=== PATIENT | female | born 1960 | race Caucasian/White ===

== ENCOUNTER 2025-04-17 18:04 | Emergency (ER) | payer OTHER, SELFPAY ==
[2025-04-17] VITALS (22 sets, daily range): BP systolic 160–190; BP diastolic 96–112; PULSE 69–98; TEMP 36.8; O2SAT 91–99; BMI 25.6
--- NOTE | 2025-04-17 18:27 | XR_ITS ---
The [address] [address] Patient Name: WU ERICKSON MRN: [id number] date: 1960 Sex: F Assigned Patient Location: ER Current Patient Location: ED.MAIN Accession/Order Number: [id number] Exam Date: 04/17/2025 18:45 Report Date: 04/17/2025 19:20 At the request of: MERLENE FORD MD Procedure: XR chest 1V Single frontal view chest CLINICAL HISTORY: Hypertension COMPARISON: 06/21/2022 Unremarkable cardiomediastinal. Lungs clear. No effusion or pneumothorax. XR/XR chest 1V IMPRESSION: Negative acute pleural-parenchymal disease. Impression dictated by: Star Harper M.D. 04/17/2025 7:20 PM Dictation Location: [place] [address] Electronically authenticated by: [id number] Y Date: 04/17/2025 19:20
--- NOTE | 2025-04-17 18:27 | ECG_ITS ---
The [facility] Test Date: 2025-04-17 Pat Name: Jessenia Allen Department: Room: - Gender: Female Roofing Layer: : 1960 Requested By: [id number] Order Number: [id number] Reading MD: MARCY WILKERSON M.D. Measurements Intervals [place] Rate: 90 P: 26 [place]: 140 QRS: 0 QRSD: 78 T: 36 QT: 380 QTc: 428 Interpretive Statements 1100 Sinus rhythm 9110 normal ECG Compared to ECG 06/21/2022 18:42:53 No significant changes Electronically Signed On 04-18-2025 10:51:08 EDT by MARCY WILKERSON M.D.
--- NOTE | 2025-04-17 18:29 | ED.GENADUL1 ---
HPI HPI - General Adult General Chief complaint: Recheck/Abnormal Lab/Rx Stated complaint: HIGH BLOOD PRESSURE/ HEART RACING/ NAUSEATED Time Seen by Provider: 04/17/25 18:19 Source: patient Mode of arrival: walk-in Limitations: no limitations History of Present Illness HPI narrative: 64-year-old female presented to the emergency department for elevated blood pressure. Yesterday she had a fullness in her chest and her neck was hurting. Her daughter checked her blood pressure today and it was high so she came in. She does not have that fullness now but she feels off. The last time she had her blood pressure checked was a few months ago at her doctor's office and it was normal. Sometimes she feels like she needs to take in a deep breath. Related Data Home Medications ?Medication ?Instructions ?Recorded ?Confirmed cholecalciferol (vitamin D3) 50 04/17/25 mcg (2,000 unit) capsule Allergies Allergy/AdvReac Type Severity Reaction Status Date / Time sulfamethoxazole (From Allergy Vomiting Verified 04/17/25 18:15 Bactrim) trimethoprim (From Bactrim) Allergy Vomiting Verified 04/17/25 18:15 Review of Systems ROS Narrative A ten point review of systems is negative except as noted above. PFSH PFSH Social History Little interest or pleasure in doing things: not at all Feeling down, depressed, or hopeless: not at all Exam Narrative Exam Narrative: Nurses note and vital signs reviewed and patient is not hypoxic. General:The patient appears well and in no apparent distress.Patient is resting comfortably on cart. Skin:Warm, dry, no pallor noted.There is no rash noted. Head:Normocephalic, atraumatic Eye: Normal conjunctiva, no drainage Ears, Nose, Mouth, and Throat: oral mucosa is moist. Nares patent. Cardiovascular:Regular Rate and Rhythm Respiratory:Patient is in no distress, no accessory muscle use, lungs are clear to auscultation, no wheezing, rales or rhonchi Back:non-tender GI: Soft and nontender Musculoskeletal: The patient has no evidence of calf tenderness, no pitting edema, symmetrical pulses noted bilaterally Neurological:A&O, normal speech Psychiatric:Cooperative Constitutional Vital Signs, click to edit/add: Last Vital Signs Temp 98.2 F 04/17/25 18:09 Pulse 96 H 04/17/25 18:09 Resp 16 04/17/25 18:09 BP 190/112 H 04/17/25 18:09 Pulse Ox 99 04/17/25 18:09 O2 Del Method Room Air 04/17/25 18:09 Course Vital Signs Vital signs: Vital Signs Temperature 98.2 F 04/17/25 18:09 Pulse Rate 96 H 04/17/25 18:09 Respiratory Rate 16 04/17/25 18:09 Blood Pressure 190/112 H 04/17/25 18:09 Pulse Oximetry 99 04/17/25 18:09 Oxygen Delivery Method Room Air 04/17/25 18:09 Temperature 98.2 F 04/17/25 18:09 Pulse Rate 96 H 04/17/25 18:09 Respiratory Rate 16 04/17/25 18:09 Blood Pressure 190/112 H 04/17/25 18:09 Pulse Oximetry 99 04/17/25 18:09 Oxygen Delivery Method Room Air 04/17/25 18:09 Medical Decision Making MDM Narrative Medical decision making narrative: Tests ordered and the patient is signed out to Dr. Kenny at change of shift Differential Diagnosis Differential Diagnosis: Hypertension, acute kidney injury, myocardial infarction, PE Lab Data Lab results reviewed: Yes I reviewed the patient's lab results Labs: Lab Results 04/17/25 Range/Units 18:32 WBC 8.1 (4.0-11.0) 10^3/uL RBC 5.02 (4.20-5.40) 10^6/uL Hgb 15.9 (12.0-16.0) g/dL Hct 46.5 (36.0-48.0) % MCV 92.6 (81.0-99.0) fL MCH 31.7 (26.7-34.0) pg MCHC 34.2 (29.9-35.2) g/dL RDW 11.9 (11.0-15.0) % Plt Count 299 (150-450) 10^3/uL MPV 11.0 (9.5-13.5) fL Neut % (Auto) 61.7 (43.0-75.0) % Lymph % (Auto) 28.8 (20.5-60.0) % [place] % (Auto) 6.8 (1.7-12.0) % Eos % (Auto) 1.6 (0.9-7.0) % Baso % (Auto) 0.7 (0.2-2.0) % Neut # (Auto) 5.0 (1.4-6.5) 10^3/uL Lymph # (Auto) 2.3 (1.2-3.8) 10^3/uL [place] # (Auto) 0.6 (0.3-0.8) 10^3/uL Eos # (Auto) 0.1 (0.0-0.7) 10^3/uL Baso # (Auto) 0.1 (0.0-0.1) 10^3/uL Abs Immat Gran (auto) 0.03 (0.00-0.03) 10^3/uL Imm/Tot Granulo (auto) 0.4 (0.0-0.5) % ECG Data Attestation: I personally reviewed and interpreted this ECG as follows: (EKG on my interpretation shows sinus rhythm with rate of 90 and no acute change) Discharge Plan Discharge Patient Disposition: Still a Patient
[2025-04-17 18:46] LABS: Hematocrit 46.5 % (36.0-48.0); Hemoglobin 15.9 g/dL (12.0-16.0); Immature Granulocytes Abs Auto 0.03 10^3/uL (0.00-0.03); Immature Granulocytes Pct Auto 0.4 % (0.0-0.5); Lymphocytes Absolute Auto 2.3 10^3/uL (1.2-3.8); Mean Corpuscular HGB Conc 34.2 g/dL (29.9-35.2); Mean Corpuscular Hemoglobin 31.7 pg (26.7-34.0); Mean Corpuscular Volume 92.6 fL (81.0-99.0); Platelet Count 299 10^3/uL (150-450); Red Blood Count 5.02 10^6/uL (4.20-5.40); White Blood Count 8.1 10^3/uL (4.0-11.0)
[2025-04-17 19:06] LABS: Anion Gap 12.2; Blood Urea Nitrogen 13.0 mg/dL (7.0-18.0); Calcium 9.7 mg/dL (8.5-10.1); Carbon Dioxide 26.0 mmol/L (21.0-32.0); Chloride 102 mmol/L (98-107); Estimated GFR (African America >60 (>=60 mL/min/1.73m^2); Estimated GFR (Non-African Ame >60 (>=60 mL/min/1.73m^2); Glucose 105 mg/dL (74-106); Potassium 3.2 mmol/L (3.5-5.1); Sodium 137 mmol/L (136-145)
--- OUTSIDE RECORDS SUMMARY | 2025-04-17 19:19 | XMS_ITS | Clinical Summary ---
Author Organization [facility] Address [address], [address] [place] [address] Care Team Providers Care Tech Intern Name Role Phone Unavailable Primary Care Provider Unavailabl e Allergies Active Allergy Reactions Criticality Noted Date Comments Sulfamethoxazole-Tri methoprim Other (See Comments) 05/22/2019 Dizziness, stomach upset, nausea Medications Multiple Vitamins-Mineral s (THERAPEUTIC MULTIVITAMIN-MIN ERALS) tablet Take 1 tablet by mouth daily Active Loma-3 1400 MG CAPS Take by mouth Active vitamin C (ASCORBIC ACID) 500 MG tablet Take 500 mg by mouth daily Active Wild Yam 100 MG CAPS Take by mouth Active Cranberry 400 MG TABS Take by mouth Active Cyanocobalamin (VITAMIN B-12) 3000 MCG/ML LIQD Place under the tongue Active Active Problems Problem Noted Date Diagnosed Date Frequent urinary tract infections 05/24/2019 Suprapubic pain 05/24/2019 Renal colic 05/24/2019 Family History Medical History Relation Name Comments Atrial Fibrillation Mother High Blood Pressure Mother Relation Name Status Comments Father Mother Social History Tobacco Use Types Packs/Day Years Used Date Smoking Tobacco: Never Smokeless Tobacco: Never Alcohol Use Standard Drinks/Week Comments Yes 0 (1 standard drink = 0.6 oz pur e alcohol) 2 beer per day Comments No Sex and Gender Information Value Date Recorded Sex Assigned at Not on file Legal Sex Female 9:27 PM EST Gender Identity Not on file Sexual Orientation Not on file Last Filed Vital Signs Vital Sign Reading Time Taken Comments Blood Pressure 140/80 05/22/2019 1:47 PM EDT Pulse - - Temperature 36.9 C (98.5 F) 05/22/2019 1:32 PM EDT Respiratory Rate - - Oxygen Saturation - - Inhaled Oxygen Concentration - - Weight 68.9 kg (152 lb) 05/22/2019 1:32 PM EDT Height 157.5 cm (5' 2 ) 05/22/2019 1:32 PM EDT Body Mass Index 27.8 05/22/2019 1:32 PM EDT Plan of Treatment Not on file Insurance [employer]
--- OUTSIDE RECORDS SUMMARY | 2025-04-17 19:19 | XMS_ITS | Encounter Summary ---
Author Organization [employer] Address [facility] [address] [place] [address] Care Team Providers Care Maintenance Shop Clerk Name Role Phone Sang Green Cristine GRANADON-PINION POLISHER Primary Care Provider + Encounter Details Date Type Department Care Team (Late st Contact Info) Description 05/15/2024 Telephone [facility] - Family Medicine [address] [place] [phone] Abdulkadir Zheng CMA Social History Tobacco Use Types Packs/Day Years Used Date Smoking Tobacco: Never Smokeless Tobacco: Never Alcohol Use Standard Drinks/Week Comments Yes 25 (1 standard drink = 0.6 oz pu re alcohol) 10-12 drinks per week PHQ-2 Answer Date Recorded Total Score 0 05/25/2023 Childcare Answer Date Recorded Childcare Unknown 01/03/2019 Employment Answer Date Recorded Employment Unknown 01/03/2019 Hunger Screening Answer Date Recorded Within the past 12 months we worried whether our food would run out before we got money to buy more. Never True 11/30/2023 Within the past 12 months th e food we bought just didn't last and we didn't have money to get more. Never True 11/30/2023 Comments No Sex and Gender Information Value Date Recorded Sex Assigned at Not on file Legal Sex Female 11:37 AM EDT Gender Identity Not on file Sexual Orientation Not on file documented as of this encounter Miscellaneous Notes * Telephone Encounter - Abdulkadir Zheng CMA - 05/15/2024 10:30 AM EDT Pt called states she is pretty sure she has Shingles. She states you are well aware of her insurance.Could you please send in a Antiviral to her local pharmacy. * Telephone Encounter - KUSHAL Colunga - 05/15/2024 10:30 AM EDT Unfortunately, shingles is something we need to see and cannot send antivirals in without being seen. * Telephone Encounter - Abdulkadir Zheng CMA - 05/15/2024 10:30 AM EDT I called pt and left message on Personal Voice mail documented in this encounter Plan of Treatment Upcoming Encounters Date Type Department Care Team (Late st Contact Info) Description 05/27/2025 9:00 AM EST Office Visit [facility] [address] [place] [address] Sang Green APRN-CNP [address], [place] [id number] documented as of this encounter Visit Diagnoses Not on filedocumented in this encounter Additional Health Concerns Assessment Noted Time PHQ-9 Depression Total Score: 0 05/25/20 23 2:42 PM EDT A Body Mass Index follow-up plan has been documented for the patient 08/09/2023 2:25 PM EST documented as of this encounter Care Teams Maintenance Shop Clerk Relationship Specialty Start Date End Date Sang Green APRN-CNP [address] [place] [address] PCP - General Internal Medicine 02/07/25 documented as of this encounter
--- OUTSIDE RECORDS SUMMARY | 2025-04-17 19:19 | XMS_ITS | Encounter Summary ---
Author Organization [employer] Address [facility] [id number] [address] [place] [address] Care Team Providers Care Physical Optics Teacher Name Role Phone Sang Green BARREL RIFLER BUTTON-HEAD WAITER Primary Care Provider + Encounter Details Date Type Department Care Team (Late Contact Info) Description 08/13/2022 Orders Only [facility] - [facility] [address] [place] [phone] Melody Arnold CMA Encounter for screening for osteoporosis; Asymptomatic menopause; Chronic sacroiliac joint pain Social History Tobacco Use Types Packs/Day Years Used Date Smoking Tobacco: Never Smokeless Tobacco: Never Alcohol Use Standard Drinks/Week Comments Yes 25 (1 standard drink = 0.6 oz pu re alcohol) PHQ-2 Answer Date Recorded Total Score 0 07/29/2022 Childcare Answer Date Recorded Childcare Unknown 01/03/2019 Employment Answer Date Recorded Employment Unknown 01/03/2019 Comments Unknown Sex and Gender Information Value Date Recorded Sex Assigned at Not on file Legal Sex Female 11:37 AM EDT Gender Identity Not on file Sexual Orientation Not on file COVID-19 Exposure Response Date Recorded In the last month, have you been in contact with someone who was confirmed or suspected to have Coronavirus / COVID-19? No / Unsure 07/29/2022 8:52 AM EST documented as of this encounter Plan of Treatment Upcoming Encounters Date Type Department Care Team (Late Contact Info) Description 05/27/2025 9:00 AM EST [facility] [address] [place] [address] Sang Green, JACI-HEAD WAITER [address] [place] [address] documented as of this encounter Procedures Procedure Name Priority Date/Time Associated Diagnosis Comments XR SPINE LUMBAR 2 OR 3 VWS Routine 08/13/2022 11:13 AM EST Chronic sacroiliac joint pain DEXA SCAN CENTRAL SKELETAL Routine 08/13/2022 10:20 AM EST Encounter for screening for osteoporosis Asymptomatic menopause documented in this encounter Results * X-ray spine lumbar 2 or 3 views (08/13/2022 11:13 AM EST) Anatomical Region Laterality Modality MSK, Neuro, Spine, L-spine N/A Compu thomas Radiography Leona Cervantes APRN-AMY [facility] DIAGNOSTIC IMAGI NG ORDERABLES Final Result * Dexa scan central skeletal (08/13/2022 10:20 AM EST) Anatomical Region Laterality Modality N/A Radiographic Evon ging Leona FATIMA [facility] DXA ORDERABLES F inal Result documented in this encounter Visit Diagnoses Diagnosis Encounter for screening for osteoporosis Asymptomatic menopause Chronic sacroiliac joint pain Disorders of sacrum documented in this encounter Additional Health Concerns Assessment Noted Time PHQ-9 Depression Total Score: 0 07/29/19 23 9:19 AM EST A Body Mass Index follow-up plan has been documented for the patient 07/29/2022 12:40 PM EST documented as of this encounter Care Teams Physical Optics Teacher Relationship Specialty Start Date End Date Sang Green, KUSHAL [address] [place] [address] PCP - General Internal Medicine 02/07/25 documented as of this encounter
--- OUTSIDE RECORDS SUMMARY | 2025-04-17 19:19 | XMS_ITS | Clinical Summary ---
Author Organization [facility] [employer] [facility] tem Address [id number] [address] [place] [address] Care Team Providers Care Field Seismologist Name Role Phone Sang Green Cristine GRANADON-BOOSTER PUMP OPERATOR Primary Care Provider + Allergies Active Allergy Reactions Criticality Noted Date Comments Sulfamethoxazole-Tri methoprim Other (See Comments) 05/22/2019 Dizziness, stomach upset, nausea Medications cholecalciferol , vitamin D3, 2,000 units capsuleIndicati ons:Vitamin D deficiency Take 1 capsule (2,000 Units total) by mouth in the morning. 30 capsule 11 06/18/2024 Active clindamycin (CLEOCIN) 300 mg capsule TAKE 1 CAPSULE BY MOUTH EVERY 12 HOURS UNTIL GONE 02/05/2025 Active meloxicam (MOBIC) 7.5 mg tablet Take 1 tablet (7.5 mg total) by mouth in the morning. 30 tablet 1 02/20/2025 Active Active Problems Problem Noted Date Diagnosed Date Primary osteoarthritis of left hip 11/30/2023 Lumbar spondylosis 10/26/2023 Disorder of sacrum 10/26/2023 Lumbar radiculopathy 10/26/2023 Encounters Date Type Department Care Team Description 02/20/2025 2:15 PM EDT Office Visit [facility] [address] [place] [address] Cathy Horne, PABolivarC Lumbar spondylosis (Primary Dx); Primary osteoarthritis of left hip; Disorder of sacrum; Lumbar radiculopathy 02/20/2025 Travel 02/11/2025 9:00 AM EDT Office Visit [facility] [address] [place] [place] [phone] Sang Green, JACI-AMY Left ear pain (Primary Dx); Lumbar spondylosis; Primary osteoarthritis of left hip 02/11/2025 Travel from Last 3 Months Family History Medical History Relation Name Comments Heart disease Brother Lung cancer Father Hyperlipidemia Mother Hypertension Mother Relation Name Status Comments Brother Alive Father Mother Social History Tobacco Use Types Packs/Day Years Used Date Smoking Tobacco: Never Smokeless Tobacco: Never Tobacco Cessation:Counseling Given: Not Answered Alcohol Use Standard Drinks/Week Comments Yes 25 (1 standard drink = 0.6 oz pu re alcohol) 10-12 drinks per week PHQ-2 Answer Date Recorded Total Score 0 02/11/2025 Childcare Answer Date Recorded Childcare Unknown 01/03/2019 Employment Answer Date Recorded Employment Unknown 01/03/2019 Hunger Screening Answer Date Recorded Within the past 12 months we worried whether our food would run out before we got money to buy more. Never True 02/20/2025 Within the past 12 months th e food we bought just didn't last and we didn't have money to get more. Never True 02/20/2025 Comments No Sex and Gender Information Value Date Recorded Sex Assigned at Not on file Legal Sex Female 11:37 AM EDT Gender Identity Not on file Sexual Orientation Not on file Last Filed Vital Signs Vital Sign Reading Time Taken Comments Blood Pressure 141/78 02/20/2025 1:52 PM EDT Pulse 100 02/20/2025 1:52 PM EDT Temperature 36.3 C (97.3 F) 02/11/2025 8:54 AM EDT Respiratory Rate 18 02/20/2025 1:52 PM EDT Oxygen Saturation 100% 02/20/2025 1:52 PM EDT Inhaled Oxygen Concentration - - Weight 67.1 kg (148 lb) 02/20/2025 1:52 PM EDT Height 157.5 cm (5' 2 ) 02/20/2025 1:52 PM EDT Body Mass Index 27.07 02/20/2025 1:52 PM EDT Plan of Treatment Upcoming Encounters Date Type Department Care Team (Late st Contact Info) Description 05/27/2025 9:00 AM EST Office Visit [facility] - [facility] [address] [place] [phone] Sang Green, ASSEMBLER LEATHER GOODS-BOOSTER PUMP OPERATOR [address], [facility] [address] [place] [address] Health Maintenance Due Date Last Done Comments DTaP,Tdap and Td Vaccines (1 - Tdap) 1979 Pap Smear 1981 Mammogram 2000 Colonoscopy 2005 Zoster (Shingles) Vaccine (1 of 2) 2010 COVID-19 Vaccine (2024-2 6 season) 2025 07/11/2021, 12/02/2020, 11/11/2020 Influenza Vaccine 03/25/2025 Adult BMI Follow Up Plan 05/16/2025 05/16/2024 Depression Screening 02/11/2026 02/11/2025 Adult BMI Screening 02/20/2026 02/20/2025 Tobacco Screening 02/20/2026 02/20/2025 Medical Devices Not on file Insurance [employer] Advance Directives Documents on File Type Date Recorded Patient Gaming Dealer Expl anation Durable Power of Rapid Outsole Stitcher 07/29/2022 10:06 AM DPA 07/29/22 Care Teams Field Seismologist Relationship Specialty Start Date End Date Sang Green, ASSEMBLER LEATHER GOODS-BOOSTER PUMP OPERATOR [address] [place] [address] PCP - General Internal Medicine 02/07/25
--- OUTSIDE RECORDS SUMMARY | 2025-04-17 19:19 | XMS_ITS | Encounter Summary ---
Author Organization [facility] tem Address [id number] [address] [place] [address] Care Team Providers Care Planing Machine Operator Name Role Phone Sang Green [facility] Primary Care Provider + Encounter Details Date Type Department Care Team (Late Contact Info) Description 08/18/2023 Orders Only [facility] - Family Medicine [address] [place] [phone] Leona Cervantes, ASSOCIATE PASTOR-[facility] [address] [place] [address] Change in pigmented lesion of face Social History Tobacco Use Types Packs/Day Years [...] got money to buy more. Never True 08/09/2023 Within the past 12 months th e food we bought just didn't last and we didn't have money to get more. Never True 08/09/2023 Comments No Sex and Gender Information Value Date Recorded Sex Assigned at Not on file Legal Sex Female 11:37 AM EDT Gender Identity Not on file Sexual Orientation Not on file documented as of this encounter Plan of Treatment Upcoming Encounters Date Type Department Care Team (Late Contact Info) Description 05/27/2025 9:00 AM EST Office Visit [facility] - [facility] [address] [place] [address] Sang Green, ASSOCIATE PASTOR-GRAPE PRUNER [address] [place] [address] documented as of this encounter Procedures Procedure Name Priority Date/Time Associated Diagnosis Comments AMB REFERRAL TO DERMATOLOGY Routine 08/17/2023 Change in pigmented lesion of face documented in this encounter Results * Ambulatory referral to Dermatology ([facility]) (08/17/2023) us Leona Cervantes APRN-GRAPE PRUNER OUTPATIENT REFERRAL ORDERABLES Final Result MANUALLY TRANSCRIBED RESULTS documented in this encounter Visit Diagnoses Diagnosis Change in pigmented lesion of face documented in this encounter Additional Health Concerns Assessment Noted Time PHQ-9 Depression Total Score: 0 05/25/20 23 2:42 PM EDT A Body Mass Index follow-up plan has been documented for the patient 08/09/2023 2:25 PM EST documented as of this encounter Care Teams Planing Machine Operator Relationship Specialty Start Date End Date Sang Green, ASSOCIATE PASTOR-GRAPE PRUNER [address] [place] [address] PCP - General Internal Medicine 02/07/25 documented as of this encounter
[2025-04-17] MEDS: ASPIRIN 81 MG TAB.CHEW 162 MG PO (19:30)
[2025-04-17] MEDS: LABETALOL HCL 20 MG/4 ML SYRINGE 10 MG IVP ×2 (19:30→20:10)
--- NOTE | 2025-04-17 19:32 | ED_ITS ---
HPI HPI - General Adult General Chief complaint: Recheck/Abnormal Lab/Rx Stated complaint: HIGH BLOOD PRESSURE/ HEART RACING/ NAUSEATED Time Seen by Provider: 04/17/25 18:19 Source: patient Mode of arrival: walk-in Limitations: no limitations History of Present Illness HPI narrative: This 64-year-old female signed out to me at shift change. She presents for evaluation of elevated blood pressure with nausea. She states that yesterday she had some pressure in her chest and neck. She denied any specific shortness of breath. She states that while she was sitting at the table she became kind of lightheaded with the pressure in her chest. She did not become diaphoretic or syncopal. She is not having any abdominal pain or back pain but does have some nausea. She called her daughter over today and her daughter took her blood pressure and it was in the 180s systolic. Her daughter went home and the patient had persistent symptoms and called her daughter back because she stated that she just was not feeling right. She did take 2 baby aspirin earlier in the day. Upon arrival her blood pressure was 190 systolic. It was retaken 30 minutes later and it was in the 160s. She was seen and evaluated. She is ambulatory in the room. She request to be tested for COVID because she frequently visits her aunt at the [facility] where they have COVID at this time. She does not have any sore throat. She is not experiencing any chest pain at this time. EKG is reviewed and there is a sinus rhythm at 90 bpm with a normal axis, normal intervals and no acute changes. She was medicated with an additional 162 mg baby aspirin, Zofran and 10 mg of IV labetalol for her elevated blood pressure. Cardiac workup was negative. She has a normal white count and stable hemoglob in. Electrolytes are normal with the mild decrease in her potassium at 3.2. She is negative for COVID-19. Troponin and D-dimer are both normal. Chest x- ray was reviewed by radiology and is negative for acute findings. Her blood pressure was only minimally affected by the 10 mg of IV labetalol and she was given another 10 mg of IV labetalol. After the first dose she stated that she was feeling quite a bit better. I suspect she has had ongoing hypertension for a period of time considering that she is somewhat resistant to the labetalol. She was offered admission but request to be discharged home. She was agreeable to waiting for a delta troponin. Delta troponin is normal. I repeated her blood pressure and it was still in the 170s over 90s. She was again offered admission but flatly refuses. She will be given a dose of Norvasc prior to discharge and a prescription for Norvasc will be given to her at the time of discharge. I strongly encouraged her to follow-up very close with her family physician for repeat blood pressure testing and further evaluation. She is agreeable to this. She does also offer that she has chronic pain, specifically back pain, that may be driving her blood pressure up and is working on solutions for this. Related Data Home Medications ?Medication ?Instructions ?Recorded ?Confirmed cholecalciferol (vitamin D3) 50 04/17/25 mcg (2,000 unit) capsule Allergies Allergy/AdvReac Type Severity Reaction Status Date / Time sulfamethoxazole (From Allergy Vomiting Verified 04/17/25 18:15 Bactrim) trimethoprim (From Bactrim) Allergy Vomiting Verified 04/17/25 18:15 PFSH PFSH Social History Little interest or pleasure in doing things: not at all Feeling down, depressed, or hopeless: not at all Exam Constitutional Vital Signs, click to edit/add: Last Vital Signs Temp 98.2 F 04/17/25 18:09 Pulse 73 04/17/25 20:40 Resp 20 04/17/25 20:40 BP 160/96 H 04/17/25 20:47 Pulse Ox 96 04/17/25 18:55 O2 Del Method Room Air 04/17/25 18:55 Course Vital Signs Vital signs: Vital Signs Temperature 98.2 F 04/17/25 18:09 Pulse Rate 96 H 04/17/25 18:09 Respiratory Rate 16 04/17/25 18:09 Blood Pressure 190/112 H 04/17/25 18:09 Pulse Oximetry 99 04/17/25 18:09 Oxygen Delivery Method Room Air 04/17/25 18:09 Temperature 98.2 F 04/17/25 18:09 Pulse Rate 73 04/17/25 20:40 Respiratory Rate 20 04/17/25 20:40 Blood Pressure 160/96 H 04/17/25 20:47 Pulse Oximetry 96 04/17/25 18:55 Oxygen Delivery Method Room Air 04/17/25 18:55 Medical Decision Making Lab Data Lab results reviewed: Yes I reviewed the patient's lab results Labs: Lab Results 04/17/25 04/17/25 04/17/25 Range/Units 18:32 19:26 20:53 WBC 8.1 (4.0-11.0) 10^3/uL RBC 5.02 (4.20-5.40) 10^6/uL Hgb 15.9 (12.0-16.0) g/dL Hct 46.5 (36.0-48.0) % MCV 92.6 (81.0-99.0) fL MCH 31.7 (26.7-34.0) pg MCHC 34.2 (29.9-35.2) g/dL RDW 11.9 (11.0-15.0) % Plt Count 299 (150-450) 10^3/uL MPV 11.0 (9.5-13.5) fL Neut % (Auto) 61.7 (43.0-75.0) % Lymph % (Auto) 28.8 (20.5-60.0) % [place] % (Auto) 6.8 (1.7-12.0) % Eos % (Auto) 1.6 (0.9-7.0) % Baso % (Auto) 0.7 (0.2-2.0) % Neut # (Auto) 5.0 (1.4-6.5) 10^3/uL Lymph # (Auto) 2.3 (1.2-3.8) 10^3/uL [place] # (Auto) 0.6 (0.3-0.8) 10^3/uL Eos # (Auto) 0.1 (0.0-0.7) 10^3/uL Baso # (Auto) 0.1 (0.0-0.1) 10^3/uL Abs Immat Gran (auto) 0.03 (0.00-0.03) 10^3/uL Imm/Tot Granulo (auto) 0.4 (0.0-0.5) % D-Dimer 0.37 (<=0.59) mg/L FEU Sodium 137 (136-145) mmol/L Potassium 3.2 L (3.5-5.1) mmol/L Chloride 102 (98-107) mmol/L Carbon Dioxide 26.0 (21.0-32.0) mmol/L Anion Gap 12.2 BUN 13.0 (7.0-18.0) mg/dL Creatinine 0.88 (0.55-1.02) mg/dL Est GFR ( Amer) >60 (>=60 mL/min/1.73m^2) Est GFR (Non-Af Amer) >60 (>=60 mL/min/1.73m^2) BUN/Creatinine Ratio 14.8 Glucose 105 (74-106) mg/dL Calcium 9.7 (8.5-10.1) mg/dL Troponin I High Sens 6.1 6.4 (4.0-51.3) pg/mL SARS-CoV-2 Ag (CV2AG) Negative (NEGATIVE) Imaging Data Chest x-ray: Radiologist's impression: ITS Impressions Chest X-Ray 04/17/25 18:27 IMPRESSION: Negative acute pleural-parenchymal disease. Impression dictated by: Star Harper M.D. 04/17/2025 7:20 PM Dictation Location: [place] [id number] Electronically authenticated by: [id number] Y Date: 04/17/2025 19:20 Discharge Plan Discharge Chief Complaint: Recheck/Abnormal Lab/Rx Clinical Impression: Hypertension Patient Disposition: Home, Self-Care Prescriptions / Home Meds: No Action cholecalciferol (vitamin D3) 50 mcg (2,000 unit) capsule Print Language: Jordanian Instructions: Heart Healthy Diet (DC), Hypertension (ED)
[2025-04-17 19:44] LABS: SARS-CoV-2 Ag NEGATIVE (NEGATIVE)
[2025-04-17] MEDS: POTASSIUM CHLORIDE 10 MEQ ER TABLET 20 MEQ PO (20:45)
[2025-04-17] MEDS: AMLODIPINE BESYLATE 5 MG TABLET PO (22:00)
== END 2025-04-17 22:13 | disposition home or self-care (01) ==
PROVIDERS: Emergency Medicine; Emergency Provider Emergency Medicine
DX: I10 Essential (primary) hypertension (principal)
CPT/HCPCS: 36415; 71045; 80048; 84484; 85025; 85378; 87811; 93005; 96374; 96375; 96376; 99285; J1920; J2405